=== PATIENT | female | born 1945 | race African-American/Black ===

== ENCOUNTER 2016-09-04 16:25 | Emergency (ER) | payer OTHER ==
[2010-05-13 10:57] VITALS: BMI 29.4
[~2016-09-04 16:25] MED LIST: CHLORTHALIDONE25 MG PO; COREG 3.1253.125 MG GT; GLUCOPHAGE XR750 MG PO; LANTUS SOL100 UNIT/1 SC; OXYBUTYNIN CHLOR5 MG PO; ZETIA10 MG PO; ZOLOFT100 MG PO
== END 2016-09-04 20:25 | disposition home or self-care (01) ==
LOC: D.ER 16:25
DX: R07.89 Other chest pain (principal); S60.222A Contusion of left hand, initial encounter; V43.52XA Car driver injured in collision with other type car in traffic accident, initial encounter; Y93.89 Activity, other specified; Y92.410 Unspecified street and highway as the place of occurrence of the external cause; M25.572 Pain in left ankle and joints of left foot; I25.10 Atherosclerotic heart disease of native coronary artery without angina pectoris; F32.9 Major depressive disorder, single episode, unspecified; E11.9 Type 2 diabetes mellitus without complications; Z79.4 Long term (current) use of insulin